=== PATIENT | male | born 1970 | race Caucasian/White ===

== ENCOUNTER 2017-10-23 22:30 | Emergency (ER) | payer OTHER ==
[~2017-10-23] VITALS: Ht 177.8 cm; Wt 115.0 kg
[2017-10-23 22:34] VITALS: BP 132/101
[2017-10-23] MEDS ORDERED: LIDOCAINE 1%, 20ML SQ ONE (23:30)
[2017-10-23] MEDS ORDERED: LIDOCAINE 1%, 20ML ONE (23:33)
[2017-10-24] MEDS ORDERED: BACITRACIN ZINC OINT 500U/GM, 0.9 GM ONE (00:44)
== END 2017-10-24 02:02 ==
LOC: ED 23:38
DX: S01.01XA Laceration without foreign body of scalp, initial encounter (principal); Z87.891 Personal history of nicotine dependence; Z86.73 Personal history of transient ischemic attack (TIA), and cerebral infarction without residual deficits; W01.0XXA Fall on same level from slipping, tripping and stumbling without subsequent striking against object, initial encounter; Y93.89 Activity, other specified; Y92.009 Unspecified place in unspecified non-institutional (private) residence as the place of occurrence of the external cause; Y99.8 Other external cause status
CPT/HCPCS: 13121; 70450; 72125; 93005; 99285

== ENCOUNTER 2017-10-30 00:42 | Emergency (ER) | payer OTHER ==
[~2017-10-30] VITALS: Ht 177.8 cm; Wt 120.0 kg
[2017-10-30 00:52] VITALS: BP 154/104
[2017-10-30] MEDS ORDERED: OMEP20TA62 PO (01:18)
[2017-10-30] MEDS ORDERED: VIT D WEEKLY (01:18)
[2017-10-30] MEDS ORDERED: DRON10CA PO (01:18)
[2017-10-30] MEDS ORDERED: METOCLOPRAMIDE 5 MG/ML, 2ML ONE (01:26)
[2017-10-30] MEDS ORDERED: DIPHENHYDRAMINE 50 MG/ML, 1ML ONE (01:26)
[2017-10-30] MEDS ORDERED: DIPHENHYDRAMINE 50 MG/ML, 1ML IVPush ONE (01:30)
[2017-10-30] MEDS ORDERED: METOCLOPRAMIDE 5 MG/ML, 2ML IVPush ONE (01:30)
[2017-10-30] MEDS ORDERED: SODIUM CHLORIDE 0.9% 1,000ML IVBOLUS ONE (01:30)
== END 2017-10-30 02:08 | disposition home or self-care (01) ==
LOC: ED 01:10
DX: G43.C0 Periodic headache syndromes in child or adult, not intractable (principal); F07.81 Postconcussional syndrome
CPT/HCPCS: 70450; 93005; 96374; 96375; 99284; J1200; J2765; J7030

== ENCOUNTER 2018-06-20 14:21 | Emergency (ER) | payer MEDICARE, OTHER ==
[~2018-06-20] VITALS: Ht 177.8 cm; Wt 117.0 kg
[~2018-06-20 14:21] MED LIST: DRON10CA PO; OMEP20TA62 PO; VIT D WEEKLY
[2018-06-20 15:22] LABS: BASOPHILS # (AUTO) 0.02 x10^3/uL (0-0.1); BASOPHILS % (AUTO) 0 % (0-1); EOSINOPHILS # (AUTO) 0.43 x10^3/uL (0-0.4); EOSINOPHILS % (AUTO) 5 % (1-7); LYMPHOCYTES # (AUTO) 1.43 x10^3/uL (1-3.4); LYMPHOCYTES % (AUTO) 15 % (22-44); MD NO; MEAN CORPUSCULAR HEMOGLOBIN 29.1 pg (27.5-34.5); MEAN CORPUSCULAR HGB CONC 33.8 g/dL (33.2-36.2); MEAN PLATELET VOLUME 8.9 fL (7.4-10.4); MONOCYTES # (AUTO) 0.69 x10^3/uL (0.2-0.8); MONOCYTES % (AUTO) 7 % (2-9); NEUTROPHILS # (AUTO) 7.05 x10^3/uL (1.8-6.8); NEUTROPHILS % (AUTO) 73 % (42-75); PLATELET COUNT 190 x10^3/uL (130-400); RED CELL DISTRIBUTION WIDTH 13.6 % (9.4-14.8)
[2018-06-20 15:32] LABS: ALBUMIN 3.8 g/dL (3.4-5.0); ANION GAP 10 mmol/L (5-15); CALCIUM 9.2 mg/dL (8.5-10.1); CHLORIDE 108 mmol/L (98-107)
[2018-06-20 15:35] LABS: ALANINE AMINOTRANSFERASE 22 U/L (12-78); ALKALINE PHOSPHATASE 73 U/L (45-117); BILIRUBIN,TOTAL 0.6 mg/dL (0.2-1.0); CREATININE 1.04 mg/dL (0.7-1.3); TOTAL PROTEIN 7.7 g/dL (6.4-8.2)
[2018-06-20] MEDS ORDERED: MORPHINE SULFATE 4 MG/ML, 1ML IVPush PRN (16:30)
[2018-06-20] MEDS ORDERED: PROMETHAZINE 25 MG/ML, 1ML IM ONE (16:30)
[2018-06-20] MEDS ORDERED: SODIUM CHLORIDE FLUSH 10ML SYR IVF ONE (16:30)
[2018-06-20] MEDS ORDERED: MORPHINE SULFATE 4 MG/ML, 1ML ONE (16:34)
[2018-06-20] MEDS ORDERED: METOCLOPRAMIDE 5 MG/ML, 2ML ONE (16:57)
[2018-06-20] MEDS ORDERED: OMNIPAQUE 350 MG/ML, 100ML BOTTLE ONE (16:58)
[2018-06-20] MEDS ORDERED: METOCLOPRAMIDE 5 MG/ML, 2ML IVPush ONE (17:00)
[2018-06-20 17:03] VITALS: BP 113/77
[2018-06-20 17:59] LABS: MICROSCOPIC NOT IND
[2018-06-20] MEDS ORDERED: metroNIDAZOLE 500 MG TABLET PO ONE (18:00)
[2018-06-20] MEDS ORDERED: CIPROFLOXACIN 500 MG TABLET PO ONE (18:00)
[2018-06-20] MEDS ORDERED: METRONIDAZOLE PMX 500MG/100ML 0 ML ONE (18:01)
[2018-06-20 18:09] LABS: CULTURE INDICATED? NO
[2018-06-20] MEDS ORDERED: metroNIDAZOLE 500 MG TABLET ONE (18:15)
[2018-06-20] MEDS ORDERED: CIPROFLOXACIN 500 MG TABLET ONE (18:15)
== END 2018-06-20 18:47 | disposition home or self-care (01) ==
LOC: ED 18:41
DX: K57.12 Diverticulitis of small intestine without perforation or abscess without bleeding (principal); Z86.73 Personal history of transient ischemic attack (TIA), and cerebral infarction without residual deficits; Z79.899 Other long term (current) drug therapy
CPT/HCPCS: 36415; 71046; 74021; 74177; 80053; 81003; 83690; 85025; 96374; 96375; 99285; J2765; Q9967

== ENCOUNTER 2020-01-17 05:25 | Emergency (ER) | payer OTHER ==
[~2020-01-17] VITALS: Ht 175.3 cm; Wt 73.2 kg
[2020-01-17] MEDS ORDERED: LIDOCAINE-MPF 2% ,5ML ONE (05:30)
[2020-01-17] MEDS ORDERED: LIDOCAINE 2%, 10ML INFIL ONE (05:30)
[2020-01-17 05:37] VITALS: BP 132/91
[2020-01-17] MEDS ORDERED: TADA20TA33 PO (05:43)
[2020-01-17] MEDS ORDERED: LINA145C PO (05:43)
[2020-01-17] MEDS ORDERED: TAMS-11 PO (05:43)
[2020-01-17] MEDS ORDERED: CHOL3000 PO (05:43)
--- NOTE | 2020-01-17 06:12 | NUR ---
EAR IRRIGATED AND SMALL BUG REMOVED FROM EAR WITH THIS. PT. REPORTS RELIEF WITH THIS. PT. TO D/C HOME.
== END 2020-01-17 06:32 | disposition home or self-care (01) ==
LOC: ED 06:11
DX: T16.2XXA Foreign body in left ear, initial encounter (principal); G43.909 Migraine, unspecified, not intractable, without status migrainosus; X58.XXXA Exposure to other specified factors, initial encounter; Y93.89 Activity, other specified; Y92.89 Other specified places as the place of occurrence of the external cause; Y99.8 Other external cause status
CPT/HCPCS: 99282; 99283

== ENCOUNTER 2020-05-25 01:05 | Emergency (ER) | payer OTHER ==
[~2020-05-25] VITALS: Ht 175.3 cm; Wt 74.7 kg
[~2020-05-25 01:05] MED LIST changes: +CHOL3000 PO; +LINA145C PO; +TADA20TA33 PO; +TAMS-11 PO
[2020-05-25] MEDS ORDERED: [UNRECOGNIZED DRUG - OTHER] (01:13)
[2020-05-25] MEDS ORDERED: LIDOCAINE-MPF 2% ,5ML ONE (02:00)
[2020-05-25] MEDS ORDERED: LIDOCAINE 2%, 20ML INFIL ONE (02:00)
[2020-05-25] MEDS ORDERED: KETOROLAC 30 MG/1 ML ONE (02:00)
[2020-05-25] MEDS ORDERED: SODIUM CHLORIDE FLUSH 10ML SYR IVF ONE (02:00)
[2020-05-25] MEDS ORDERED: DIPH,PERTUSS(ACELL),TET VAC/PF 0.5 ML IM-VACC ONE ×2 (02:00→02:58)
[2020-05-25] MEDS ORDERED: MORPHINE SULFATE 4 MG/ML, 1ML IVPush PRN (02:00)
[2020-05-25] MEDS ORDERED: ONDANSETRON 2MG/ML, 2ML IVPush ONE (02:00)
[2020-05-25] MEDS ORDERED: SODIUM CHLORIDE 0.9% 1,000ML IVBOLUS ONE (02:00)
[2020-05-25] MEDS ORDERED: ONDANSETRON 2MG/ML, 2ML ONE (02:00)
[2020-05-25] MEDS ORDERED: KETOROLAC 30 MG/1 ML IV ONE (02:00)
[2020-05-25] MEDS ORDERED: MORPHINE SULFATE 4 MG/ML, 1ML ONE (02:01)
[2020-05-25 02:12] LABS: BASOPHILS # (AUTO) 0.02 x10^3/uL (0-0.1); BASOPHILS % (AUTO) 0 % (0-1); EOSINOPHILS # (AUTO) 0.08 x10^3/uL (0-0.4); EOSINOPHILS % (AUTO) 1 % (1-7); LYMPHOCYTES # (AUTO) 1.18 x10^3/uL (1-3.4); LYMPHOCYTES % (AUTO) 12 % (22-44); MD NO; MEAN CORPUSCULAR HEMOGLOBIN 30.1 pg (27.5-34.5); MEAN CORPUSCULAR HGB CONC 33.4 g/dL (33.2-36.2); MEAN CORPUSCULAR VOLUME 89.9 fL (81-97); MEAN PLATELET VOLUME 8.1 fL (7.4-10.4); MONOCYTES # (AUTO) 0.59 x10^3/uL (0.2-0.8); MONOCYTES % (AUTO) 6 % (2-9); NEUTROPHILS # (AUTO) 7.83 x10^3/uL (1.8-6.8); NEUTROPHILS % (AUTO) 81 % (42-75); PLATELET COUNT 156 x10^3/uL (130-400); RED BLOOD COUNT 5.25 x10^6/uL (4.38-5.82)
[2020-05-25 02:19] LABS: ALBUMIN 3.6 g/dL (3.4-5.0); ANION GAP 6 mmol/L (5-15); CALCIUM 9.1 mg/dL (8.5-10.1); CHLORIDE 107 mmol/L (98-107); CREATININE 1.03 mg/dL (0.7-1.3)
--- NOTE | 2020-05-25 03:02 | NUR ---
REPORT FROM TK [facility] ASSUMING CARE OF PT
--- NOTE | 2020-05-25 03:02 | NUR ---
PT BACK FROM CT
--- NOTE | 2020-05-25 03:25 | NUR ---
TECH AT BEDSIDE TO SET UP/ CLEAN FOR SUTURES
--- NOTE | 2020-05-25 03:33 | NUR ---
PA AT BEDSIDE FOR SUTURES AT THIS TIME
[2020-05-25] MEDS ORDERED: OMNIPAQUE 350 MG/ML, 100ML BOTTLE ONE (03:57)
--- NOTE | 2020-05-25 05:00 | NUR ---
CT CALLED TO SEE WHEN READ WILL BE UP
--- NOTE | 2020-05-25 05:10 | NUR ---
[facility] CALLED FOR CT READ
--- NOTE | 2020-05-25 05:22 | NUR ---
[facility] CALLED FOR CT READ
[2020-05-25 05:57] VITALS: BP 100/67
--- NOTE | 2020-05-25 05:58 | NUR ---
PT DC, W/ CAB VOUCHER, WHEELCHAIR TO DC DESK AT PT REQUEST
== END 2020-05-25 05:59 | disposition home or self-care (01) ==
LOC: ED 01:57
DX: S01.511A Laceration without foreign body of lip, initial encounter (principal); S16.1XXA Strain of muscle, fascia and tendon at neck level, initial encounter; R55 Syncope and collapse; R07.89 Other chest pain; M25.512 Pain in left shoulder; G43.909 Migraine, unspecified, not intractable, without status migrainosus; Z86.73 Personal history of transient ischemic attack (TIA), and cerebral infarction without residual deficits; Z87.891 Personal history of nicotine dependence; X58.XXXA Exposure to other specified factors, initial encounter; Y93.89 Activity, other specified; Y92.89 Other specified places as the place of occurrence of the external cause; Y99.8 Other external cause status
CPT/HCPCS: 12052; 36415; 70450; 70486; 71260; 72125; 73030; 74177; 80048; 82040; 85025; 90471; 90715; 93005; 96361; 96374; 96375; 99285; J1885; J2270; J2405; J7030; Q9967